=== PATIENT | male | born 1990 | race Hispanic/Latino ===

== ENCOUNTER 2023-01-26 17:29 | Emergency (ER) | payer OTHER, SELFPAY ==
[~2023-01-26 17:29] MED LIST: Iopamidol-370 76% 500 ML MDV (1 ML CHARGE) ONE
[2023-01-26] MEDS ORDERED: fentaNYL 50 mcg/mL 1 mL Vial ONE (18:15)
[2023-01-26] MEDS ORDERED: Acetaminophen 500 MG TAB ONE (19:01)
[2023-01-26] MEDS ORDERED: Ketorolac Tromethamine 30 MG/ML VIAL ONE (19:01)
[2023-01-27] MEDS ORDERED: Vancomycin 1 GM/200 ML (FROZEN) BAG ONE (03:29)
== END 2023-01-26 19:59 | disposition home or self-care (01) ==
LOC: ERS 17:29
DX: S42.192A Fracture of other part of scapula, left shoulder, initial encounter for closed fracture (principal); S22.42XA Multiple fractures of ribs, left side, initial encounter for closed fracture; V80.010A Animal-rider injured by fall from or being thrown from horse in noncollision accident, initial encounter; Y93.52 Activity, horseback riding
CPT/HCPCS: 70450; 70486; 71045; 71260; 72125; 74177; 96374; 96375; J1885; J3010; Q9967